=== PATIENT | female | born 1990 | race American Indian/Alaskan Native ===

== ENCOUNTER 2016-12-05 12:29 | Emergency (ER) | payer OTHER ==
[2016-12-05 12:35] VITALS: BP 143/88
--- NOTE | 2016-12-06 20:43 | Emergency Department Report ---
Entered by ART BARUN, acting as scribe for MARC SHARMA PA. ED ENT HPI - General Chief complaint: Dental/Oral Stated complaint: TOOTHACHE Source: patient Mode of arrival: Ambulatory Limitations: No Limitations - History of Present Illness Initial comments: 26 year old female with a PMHx of obesity and anemia presents to the ED c/o a toothache that began this morning. Rates pain a 10/10 in severity. Pt states the pain is coming from a tooth on the right back side of lower mouth. Notes pain radiates to her right ear. Denies headache, fever, chills, and sore throat. MD complaint: tooth pain (lower tooth on back right side) -: This morning Location: other (right lower back tooth) Severity: moderate Severity scale (0 -10): 10 Quality: aching, constant Consistency: constant Improves with: none Worsens with: none Context- Dental: poor dental care Associated Symptoms: toothache. denies: fever, cough, gum swelling, sore throat , tinnitus, hearing loss, discharge from ear, rhinorrhea, other (chills) - Related Data Previous Rx's Medication Instructions Recorded Last Taken Type Nitrofurantoin [place]/M-Cryst 100 mg PO Q12HR #14 capsule 10/21/15 Unknown Rx [Macrobid CAP] Ketorolac [Toradol] 10 mg PO Q6H PRN #20 tablet 07/23/16 Unknown Rx Nitrofurantoin [place]/M-Cryst 100 mg PO Q12HR #14 capsule 07/23/16 Unknown Rx [Macrobid CAP] Ondansetron [Zofran Odt] 4 mg PO QID PRN #20 tab.rapdis 07/23/16 Unknown Rx Ibuprofen [Motrin 800 MG tab] 800 mg PO Q8HR PRN #15 tablet 12/05/16 Unknown Rx Penicillin Vk [Veetids TAB] 250 mg PO Q8H #60 tablet 12/05/16 Unknown Rx Allergies Allergy/AdvReac Type Severity Reaction Status Date / Time acetaminophen [From Vicodin] Allergy Rash Verified 10/21/15 13:37 hydrocodone bitartrate Allergy Rash Verified 10/21/15 13:37 [From Vicodin] ED Dental HPI - General Chief complaint: Dental/Oral Stated complaint: TOOTHACHE Source: patient Mode of arrival: Ambulatory Limitations: No Limitations - History of Present Illness MD complaint: tooth pain (lower tooth on back right side) -: This morning Severity: moderate Quality: aching, constant Consistency: constant Improves with: none Worsens with: none Dental Associated Symptons: Yes: Earache. No: Headache, Sore Throat, Gum Swelling, Fever - Related Data Previous Rx's Medication Instructions Recorded Last Taken Type Nitrofurantoin [place]/M-Cryst 100 mg PO Q12HR #14 capsule 10/21/15 Unknown Rx [Macrobid CAP] Ketorolac [Toradol] 10 mg PO Q6H PRN #20 tablet 07/23/16 Unknown Rx Nitrofurantoin [place]/M-Cryst 100 mg PO Q12HR #14 capsule 07/23/16 Unknown Rx [Macrobid CAP] Ondansetron [Zofran Odt] 4 mg PO QID PRN #20 tab.rapdis 07/23/16 Unknown Rx Ibuprofen [Motrin 800 MG tab] 800 mg PO Q8HR PRN #15 tablet 12/05/16 Unknown Rx Penicillin Vk [Veetids TAB] 250 mg PO Q8H #60 tablet 12/05/16 Unknown Rx Allergies Allergy/AdvReac Type Severity Reaction Status Date / Time acetaminophen [From Vicodin] Allergy Rash Verified 10/21/15 13:37 hydrocodone bitartrate Allergy Rash Verified 10/21/15 13:37 [From Vicodin] ED Review of Systems Comment: All other systems reviewed and negative Constitutional: no symptoms reported. denies: chills, fever ENT: ear pain (right), dental pain (tooth on right back side of lower mouth). denies: throat pain, other (gum swelling) Respiratory: no symptoms reported Cardiovascular: denies: chest pain, palpitations, edema, syncope Gastrointestinal: denies: nausea, vomiting Musculoskeletal: denies: back pain, arthralgia Skin: denies: rash Neurological: denies: headache ED Past Medical Hx - Past Medical History Previous Medical History?: Yes Hx Hypertension: No Hx Congestive Heart Failure: No Hx Diabetes: No Hx Deep Vein Thrombosis: No Hx Renal Disease: No Hx Sickle Cell Disease: No Hx Seizures: No Hx Asthma: No Hx COPD: No Hx HIV: No Additional medical history: OBESITY, anemic - Surgical History Past Surgical History?: Yes Additional Surgical History: breast reduction, TONSILLECTOMY - Family History Family history: hypertension - Social History Smoking Status: Never Smoker Substance Use Type: None - Medications Home Medications: Home Medications Medication Instructions Recorded Confirmed Last Taken Type Nitrofurantoin [place]/M-Cryst 100 mg PO Q12HR #14 capsule 10/21/15 Unknown Rx [Macrobid CAP] Ketorolac [Toradol] 10 mg PO Q6H PRN #20 tablet 07/23/16 Unknown Rx Nitrofurantoin [place]/M-Cryst 100 mg PO Q12HR #14 capsule 07/23/16 Unknown Rx [Macrobid CAP] Ondansetron [Zofran Odt] 4 mg PO QID PRN #20 tab.rapdis 07/23/16 Unknown Rx Ibuprofen [Motrin 800 MG tab] 800 mg PO Q8HR PRN #15 tablet 12/05/16 Unknown Rx Penicillin Vk [Veetids TAB] 250 mg PO Q8H #60 tablet 12/05/16 Unknown Rx ED Physical Exam - General Limitations: No Limitations General appearance: alert, in no apparent distress - Head Head exam: Present: atraumatic, normocephalic - Eye Eye exam: Present: normal appearance, EOMI Pupils: Present: normal accommodation - ENT ENT exam: Present: normal exam, mucous membranes moist. Absent: other ( induration and cellulitis) - Expanded ENT Exam Expanded Mouth exam: Present: normal external inspection. Absent: drooling Teeth exam: Present: dental caries (right and left sides of lower mouth). Absent: fractured tooth #, dental tenderness #, gingival enlargement Throat exam: Positive: normal inspection. Negative: tonsillar erythema, tonsillomegaly, tonsillar exudate, R peritonsillar mass, L peritonsillar mass - Neck Neck exam: Present: normal inspection (supple), full ROM. Absent: tenderness, meningismus, lymphadenopathy - Respiratory Respiratory exam: Present: normal lung sounds bilaterally. Absent: respiratory distress, chest wall tenderness - Cardiovascular Cardiovascular Exam: Present: regular rate (S1/S2), normal rhythm. Absent: systolic murmur, diastolic murmur - GI/Abdominal GI/Abdominal exam: Present: soft. Absent: distended - Extremities Exam Extremities exam: Present: normal inspection, full ROM - Back Exam Back exam: Present: normal inspection, full ROM - Neurological Exam Neurological exam: Present: alert, oriented X3 - Psychiatric Psychiatric exam: Present: normal affect, normal mood - Skin Skin exam: Present: warm, dry, intact. Absent: rash, cyanosis, erythema, ecchymosis, other (right facial swelling, induration, and cellulitis) ED Course Vital Signs 12/05/16 12:33 Temperature 98.5 F Pulse Rate 80 Respiratory 18 Rate Blood Pressure 143/88 O2 Sat by Pulse 100 Oximetry - Reevaluation(s) Reevaluation #1: 12/06/16 20:41 had uneventful ED stay ED Medical Decision Making - Medical Decision Making ED course: Here complaining of toothache and her diagnosis toothache and dental caries. Patient was placed on penicillin and Motrin and to follow-up with [facility] dental [facility]. I gave her a vaginosis and a phone number and told her to call to schedule an appointment. She was understanding of diagnosis and treatment plan and discharged home in stable condition. ED Disposition Clinical Impression: Tooth ache, Dental caries Disposition: DISCHARGED TO HOME OR SELFCARE Is pt being admited?: No Does the pt Need Aspirin: No Condition: Stable Instructions: Dental Caries (ED), Toothache (ED) Prescriptions: Ibuprofen [Motrin 800 MG tab] 800 mg PO Q8HR PRN #15 tablet PRN Reason: Pain Penicillin Vk [Veetids TAB] 250 mg PO Q8H #60 tablet Referrals: [facility] [Outside] - 2-3 Days Forms: Work/School Release Form(ED) This documentation as recorded by the APARNA corona JASMINE,accurately reflects the service I personally performed and the decisions made by ,MARC SHARMA PA.
== END 2016-12-05 14:11 | disposition home or self-care (01) ==
LOC: ED 12:29
DX: K02.9 Dental caries, unspecified (principal); K08.89 Other specified disorders of teeth and supporting structures; E66.9 Obesity, unspecified; Z88.8 Allergy status to other drugs, medicaments and biological substances
CPT/HCPCS: 99282

== ENCOUNTER 2016-12-19 15:12 | Emergency (ER) | payer OTHER ==
--- NOTE | 2016-12-19 19:36 | Emergency Department Report ---
HPI - General Chief Complaint: Sore Throat Time Seen by Provider: 12/19/16 19:16 - HPI HPI: Patient here reports that she's been having nasal congestion for over a week and flulike symptoms with sinus pressure started 3 days ago. She says she tried Mucinex and Tylenol and Robitussin without any relief. Denies any nausea vomiting. Denies any fever or chills.Reports sore throat 10/10. Pain is worse with swallowing and feels sore. Denies any difficulty swallowing or drooling. Reports some coughing but denies any shortness of breath or chest pain. Has any wheezing or stridor. ED Past Medical Hx - Past Medical History Previous Medical History?: Yes Hx Hypertension: No Hx Congestive Heart Failure: No Hx Diabetes: No Hx Deep Vein Thrombosis: No Hx Renal Disease: No Hx Sickle Cell Disease: No Hx Seizures: No Hx Asthma: No Hx COPD: No Hx HIV: No Additional medical history: OBESITY, anemic - Surgical History Past Surgical History?: Yes Additional Surgical History: breast reduction, TONSILLECTOMY - Family History Family history: hypertension - Social History Smoking Status: Never Smoker Substance Use Type: Alcohol, Non Opiate Pain, Other - Medications Home Medications: Home Medications Medication Instructions Recorded Confirmed Last Taken Type Nitrofurantoin [place]/M-Cryst 100 mg PO Q12HR #14 capsule 10/21/15 Unknown Rx [Macrobid CAP] Ketorolac [Toradol] 10 mg PO Q6H PRN #20 tablet 07/23/16 Unknown Rx Nitrofurantoin [place]/M-Cryst 100 mg PO Q12HR #14 capsule 07/23/16 Unknown Rx [Macrobid CAP] Ondansetron [Zofran Odt] 4 mg PO QID PRN #20 tab.rapdis 07/23/16 Unknown Rx Penicillin Vk [Veetids TAB] 250 mg PO Q8H #60 tablet 12/05/16 Unknown Rx Amoxicillin/K Clav Tab [Augmentin 1 tab PO Q12HR #14 tab 12/19/16 Unknown Rx 875 mg] Cetirizine HCl [ZyrTEC] 10 mg PO QDAY #14 capsule 12/19/16 Unknown Rx Fluticasone [Flonase] 1 spray NS QDAY #1 bottle 12/19/16 Unknown Rx Ibuprofen [Motrin 800 MG tab] 800 mg PO Q8HR PRN #15 tablet 12/19/16 Unknown Rx predniSONE [Deltasone] 20 mg PO QDAY #3 tab 12/19/16 Unknown Rx ED Review of Systems ROS: Stated complaint: SORE THROAT Other details as noted in HPI Comment: All other systems reviewed and negative Constitutional: denies: chills, fever ENT: throat pain, congestion. denies: ear pain Respiratory: cough. denies: orthopnea, shortness of breath, SOB with exertion, SOB at rest, stridor, wheezing Cardiovascular: denies: chest pain, palpitations, edema, syncope Gastrointestinal: denies: abdominal pain, nausea, vomiting, diarrhea Musculoskeletal: denies: back pain, arthralgia Skin: denies: rash Neurological: denies: headache, numbness, paresthesias, abnormal gait, vertigo Physical Exam - Physical Exam Vital Signs: Vital Signs 12/19/16 15:47 Temperature 98.4 F Pulse Rate 80 Respiratory 16 Rate Blood Pressure 141/98 O2 Sat by Pulse 98 Oximetry General: This is a 26-year-old female well-nourished well-developed in no acute distress. Physical Exam: Head: Normocephalic atraumatic Mouth: Moist, no pharyngeal exudate or erythema. Uvula is midline and oral airway is patent. No gingival enlargement or dental tenderness. No facial swelling. No peritonsillar abscesses. Neck: Supple, no C-spine tenderness, no tracheal deviation. Nontender to palpate. no adenopathy Ears: Bilateral TMs congested without erythema .bilateral EAC without any redness swelling or drainage Eyes: Bilateral pupils equal and reactive to light, bilateral EOM intact. Bilateral sclera and conjunctiva without injection. Normal accommodation Nose: Mucosa moist, positive congestion with erythema. Positive clear drainage. maxillary tender to palpate. Lungs: clear to auscultate bilaterally no rhonchi wheezes or rales. Normal work of breathing extremity; No CCE. +2 pulses. No neurovascular compromise Cardiovascular: S1-S2, regular rate rhythm. No murmurs. Skin: clean Dry and intact no rash no lesions Psych: Normal mood and behavior ED Course Vital Signs 12/19/16 15:47 Temperature 98.4 F Pulse Rate 80 Respiratory 16 Rate Blood Pressure 141/98 O2 Sat by Pulse 98 Oximetry - Reevaluation(s) Reevaluation #1: 12/19/16 19:49 Patient given Motrin 800 mg in emergency room face or throat. ED Medical Decision Making - Medical Decision Making ED course: She had acute sinusitis and pharyngitis. She has been having symptoms for a week and has tried [id number] medication without any relief. She said her symptoms are getting worse. She was given Motrin 800 mg in emergency room for sore throat. Patient was understanding of discharge diagnosis and treatment plan and follow-up visit with primary care in 4 days and if she does not have a primary care follow-up with outside Medical Center. Patient discharged home with prescription for Augmentin, Zyrtec, Flonase, prednisone and Motrin. Critical care attestation.: If time is entered above; I have spent that time in minutes in the direct care of this critically ill patient, excluding procedure time. ED Disposition Clinical Impression: Acute sinusitis Qualifiers: Sinusitis location: unspecified location Recurrence: not specified as recurrent Qualified Code(s): J01.90 - Acute sinusitis, unspecified Acute pharyngitis Qualifiers: Pharyngitis/tonsillitis etiology: unspecified etiology Qualified Code(s): J02.9 - Acute pharyngitis, unspecified Disposition: DISCHARGED TO HOME OR SELFCARE Is pt being admited?: No Does the pt Need Aspirin: No Condition: Stable Instructions: Pharyngitis (ED), Sinusitis (ED) Additional Instructions: Please increase her fluid intake Take antibiotic as prescribed Please follow-up with your primary care doctor if he does not have a primary care physician then he can follow-[facility] with [facility]. Take Motrin or Tylenol per dosing chart guideline to keep fever down and to use pain. Prescriptions: Amoxicillin/K Clav Tab [Augmentin 875 mg] 1 tab PO Q12HR #14 tab Cetirizine HCl [ZyrTEC] 10 mg PO QDAY #14 capsule Fluticasone [Flonase] 1 spray NS QDAY #1 bottle Ibuprofen [Motrin 800 MG tab] 800 mg PO Q8HR PRN #15 tablet PRN Reason: Pain predniSONE [Deltasone] 20 mg PO QDAY #3 tab Referrals: PRIMARY CARE,MD [Primary Care Provider] - 3-5 Days Forms: Accompanied Note, Work/School Release Form(ED)
[2016-12-19] MEDS ORDERED: MOTRIN PO ONE (19:46)
[2016-12-19 20:04] VITALS: BP 142/94
== END 2016-12-19 20:05 | disposition home or self-care (01) ==
LOC: ED 15:12
DX: J01.90 Acute sinusitis, unspecified (principal)
CPT/HCPCS: 99282

== ENCOUNTER 2017-07-08 17:59 | Emergency (ER) | payer SELFPAY ==
[2017-07-08] MEDS ORDERED: MOTRIN PO ONE (20:40)
--- NOTE | 2017-07-08 21:49 | Emergency Department Report ---
Upper Extremity - HPI Chief Complaint: Extremity Injury, Upper Stated Complaint: FINGER INJURY Time Seen by Provider: 07/08/17 20:40 Upper Extremity: Left Middle Finger (left distal middle finger contusion) Occurred When: Today Mechanism: Crush Severity: mild Symptoms: Yes Swelling, Yes Bruising/Ecchymosis, No Pain with Movement, No Deformity, No Limited Range of Movement, No Numbness, No Weakness, No Laceration or Abrasion Other History: 27-year-old female past medical history none presents with complaint of left distal middle finger pain. Patient states she accidentally closed car window on tip of her left distal middle finger. Visible bruising to distal tuft. No lacerations sustained nail bed is intact. Denies injury to any other body part. ED Review of Systems ROS: Stated complaint: FINGER INJURY Other details as noted in HPI Constitutional: denies: chills, fever Eyes: denies: eye pain, eye discharge, vision change ENT: denies: ear pain, throat pain Respiratory: denies: cough, shortness of breath, wheezing Cardiovascular: denies: chest pain, palpitations Endocrine: no symptoms reported Gastrointestinal: denies: abdominal pain, nausea, diarrhea Genitourinary: denies: urgency, dysuria, discharge Musculoskeletal: denies: back pain, joint swelling, arthralgia Skin: denies: rash, lesions Neurological: denies: headache, weakness, paresthesias Psychiatric: denies: anxiety, depression Hematological/Lymphatic: denies: easy bleeding, easy bruising ED Past Medical Hx - Past Medical History Hx Hypertension: No Hx Congestive Heart Failure: No Hx Diabetes: No Hx Deep Vein Thrombosis: No Hx Renal Disease: No Hx Sickle Cell Disease: No Hx Seizures: No Hx Asthma: No Hx COPD: No Hx HIV: No Additional medical history: OBESITY, anemic - Surgical History Additional Surgical History: breast reduction, TONSILLECTOMY - Social History Smoking Status: Never Smoker Substance Use Type: None - Medications Home Medications: Home Medications Medication Instructions Recorded Confirmed Last Taken Type Nitrofurantoin [place]/M-Cryst 100 mg PO Q12HR #14 capsule 10/21/15 Unknown Rx [Macrobid CAP] Ketorolac [Toradol] 10 mg PO Q6H PRN #20 tablet 07/23/16 Unknown Rx Nitrofurantoin [place]/M-Cryst 100 mg PO Q12HR #14 capsule 07/23/16 Unknown Rx [Macrobid CAP] Ondansetron [Zofran Odt] 4 mg PO QID PRN #20 tab.rapdis 07/23/16 Unknown Rx Penicillin Vk [Veetids TAB] 250 mg PO Q8H #60 tablet 12/05/16 Unknown Rx Amoxicillin/K Clav Tab [Augmentin 1 tab PO Q12HR #14 tab 12/19/16 Unknown Rx 875 mg] Cetirizine HCl [ZyrTEC] 10 mg PO QDAY #14 capsule 12/19/16 Unknown Rx Fluticasone [Flonase] 1 spray NS QDAY #1 bottle 12/19/16 Unknown Rx Ibuprofen [Motrin 800 MG tab] 800 mg PO Q8HR PRN #15 tablet 12/19/16 Unknown Rx predniSONE [Deltasone] 20 mg PO QDAY #3 tab 12/19/16 Unknown Rx Naproxen 500 mg PO BID PRN #30 tablet 07/08/17 Unknown Rx Upper Extremity Exam - Exam General: Vital signs noted. No distress. Alert and acting appropriately. Head and Torso: No HEENT Abnormality, No Neck Tenderness, No Chest/Lungs Abnormality, No Abdominal Tenderness, No Back Tenderness Shoulder Exam: Yes Normal Range of Motion in Shoulder, No Shoulder Tenderness, No Clavicle Tenderness, No Shoulder Deformity, No AC Joint Tenderness Arm Exam: No Arm/Humerus Tenderness, No Arm Deformity Elbow: No Elbow Tenderness, No Normal Range of Motion in Elbow, No Elbow Deformity Forearm: No Forearm Tenderness, No Forearm Deformity, No Pain with Pronation, No Pain with Supination Wrist: Yes Normal ROM in Wrist, No Wrist Tenderness, No Wrist Deformity, No Snuffbox Tenderness, No Pain with Axial Thumb Compression Hand: Yes Digit Tenderness (tenderness to distal aspect of the left middle finger at finger pad. Some bruising here. Nailbed is intact. Capillary refill less than 1 second.), Yes Normal ROM in Digit(s) (range of motion DIPs PIPs and MCPs clinically intact on exam), No Hand Tenderness, No Hand Deformity , No Digit(s) Deformity, No Tendon Dysfunction CMS Exam: Yes Normal Distal Pulses (distal sensation and capillary refill intact , distal radial and ulnar pulses intact), Yes Normal Capillary Refill, Yes Normal Distal Sensation, No Broken Skin Hand L/R Front: 1 - Some bruising here with minimal swelling. ED Course Vital Signs 07/08/17 07/08/17 19:04 21:15 Temperature 98.9 F Pulse Rate 64 Respiratory 18 18 Rate Blood Pressure 150/89 O2 Sat by Pulse 100 Oximetry ED Medical Decision Making - Medical Decision Making A/P: Distal left middle finger contusion 1-x-ray shows no fracture 2-naproxen when necessary 3-RICE therapy, distal finger splint Critical care attestation.: If time is entered above; I have spent that time in minutes in the direct care of this critically ill patient, excluding procedure time. ED Disposition Clinical Impression: Fingertip contusion Qualifiers: Encounter type: initial encounter Qualified Code(s): S60.00XA - Contusion of unspecified finger without damage to nail, initial encounter Disposition: DC-01 TO HOME OR SELFCARE Is pt being admited?: No Does the pt Need Aspirin: No Condition: Stable Instructions: Contusion in Adults (ED), Finger Sprain (ED) Prescriptions: Naproxen 500 mg PO BID PRN #30 tablet PRN Reason: Congestion Time of Disposition: 21:47
--- NOTE | 2017-07-08 23:29 | XRay Report ---
FINAL REPORT EXAM: XR FINGER(S) 2+V LT HISTORY: injury to the left 3rd finger TECHNIQUE: AP, lateral, and oblique views of the left 3rd finger PRIORS: None. FINDINGS: There is no evidence for acute fracture or dislocation. No soft tissue swelling or radiopaque foreign bodies are seen. Bony mineralization is normal and joint spaces are maintained. IMPRESSION: No acute bony or soft tissue abnormality noted.
[2017-07-08 23:46] VITALS: BP 143/84
== END 2017-07-08 22:03 | disposition home or self-care (01) ==
LOC: ED 17:59
DX: S60.032A Contusion of left middle finger without damage to nail, initial encounter (principal); W23.0XXA Caught, crushed, jammed, or pinched between moving objects, initial encounter; Y93.89 Activity, other specified; Y99.8 Other external cause status; Y92.89 Other specified places as the place of occurrence of the external cause

== ENCOUNTER 2017-09-14 07:55 | Emergency (ER) | payer OTHER ==
[2017-09-14 08:50] LABS: Hematocrit 42.2 % (30.3-42.9); Hemoglobin 13.8 gm/dl (10.1-14.3); Mean Corpuscular HGB Conc 33 % (30-34); Mean Corpuscular Hemoglobin 28 pg (28-32); Mean Corpuscular Volume 87 fl (79-97); Platelet Count 297 K/mm3 (140-440); Red Blood Count 4.85 M/mm3 (3.65-5.03); Red Cell Distribution Width 14.7 % (13.2-15.2)
[2017-09-14 09:17] LABS: Bilirubin,Urine NEG (Negative); Blood,Urine SM (Negative); Color,Urine Yellow (Yellow); Mucus,Urine FEW /HPF; Nitrite,Urine NEG (Negative); Protein,Urine <15 mg/dL mg/dL (Negative); Urobilinogen,Urine < 2.0 mg/dL (<2.0)
[2017-09-14 09:18] LABS: Alanine Aminotransferase 15 units/L (7-56); Albumin 4.3 g/dL (3.9-5); BUN/Creatinine Ratio 12; Blood Urea Nitrogen 7 mg/dL (7-17); Calcium 8.5 mg/dL (8.4-10.2); Hemolysis Index 5
[2017-09-14 10:41] LABS: Basophils % (Manual) 0 % (0.0-1.8); Large Platelets Rare; Platelet Estimate Consistent w Auto; RBC Morphology Normal; Total Cells Counted 100
[2017-09-14 12:56] VITALS: BP 148/88
--- NOTE | 2017-09-14 13:06 | Emergency Department Report ---
ED Abdominal Pain HPI - General Chief Complaint: Abdominal Pain Stated Complaint: ABDOMINAL PAIN Source: patient Mode of arrival: Ambulatory Limitations: No Limitations - History of Present Illness MD Complaint: abdominal pain -: Gradual Location: LUQ Radiation: none Migration to: no migration Severity: moderate Quality: cramping, dull Consistency: constant Improves With: nothing Worsens With: eating Associated Symptoms: denies: nausea, vomiting, diarrhea - Related Data Previous Rx's Medication Instructions Recorded Last Taken Type Nitrofurantoin [place]/M-Cryst 100 mg PO Q12HR #14 capsule 10/21/15 Unknown Rx [Macrobid CAP] Ketorolac [Toradol] 10 mg PO Q6H PRN #20 tablet 07/23/16 Unknown Rx Nitrofurantoin [place]/M-Cryst 100 mg PO Q12HR #14 capsule 07/23/16 Unknown Rx [Macrobid CAP] Ondansetron [Zofran Odt] 4 mg PO QID PRN #20 tab.rapdis 07/23/16 Unknown Rx Penicillin Vk [Veetids TAB] 250 mg PO Q8H #60 tablet 12/05/16 Unknown Rx Amoxicillin/K Clav Tab [Augmentin 1 tab PO Q12HR #14 tab 12/19/16 Unknown Rx 875 mg] Cetirizine HCl [ZyrTEC] 10 mg PO QDAY #14 capsule 12/19/16 Unknown Rx Fluticasone [Flonase] 1 spray NS QDAY #1 bottle 12/19/16 Unknown Rx Ibuprofen [Motrin 800 MG tab] 800 mg PO Q8HR PRN #15 tablet 12/19/16 Unknown Rx predniSONE [Deltasone] 20 mg PO QDAY #3 tab 12/19/16 Unknown Rx Naproxen 500 mg PO BID PRN #30 tablet 07/08/17 Unknown Rx Famotidine [Pepcid] 20 mg PO BID 14 Days #28 tablet 09/14/17 Unknown Rx Allergies Allergy/AdvReac Type Severity Reaction Status Date / Time acetaminophen [From Vicodin] Allergy Rash Verified 10/21/15 13:37 hydrocodone bitartrate Allergy Rash Verified 10/21/15 13:37 [From Vicodin] ED Review of Systems ROS: Stated complaint: ABDOMINAL PAIN Other details as noted in HPI Comment: All other systems reviewed and negative Constitutional: no symptoms reported. denies: fever, malaise Cardiovascular: denies: chest pain ED Past Medical Hx - Past Medical History Previous Medical History?: Yes Hx Hypertension: No Hx Congestive Heart Failure: No Hx Diabetes: No Hx Deep Vein Thrombosis: No Hx Renal Disease: No Hx Sickle Cell Disease: No Hx Seizures: No Hx Asthma: No Hx COPD: No Hx HIV: No Additional medical history: OBESITY, anemic - Surgical History Past Surgical History?: Yes Additional Surgical History: breast reduction, TONSILLECTOMY - Social History Smoking Status: Never Smoker Substance Use Type: None - Medications Home Medications: Home Medications Medication Instructions Recorded Confirmed Last Taken Type Nitrofurantoin [place]/M-Cryst 100 mg PO Q12HR #14 capsule 10/21/15 Unknown Rx [Macrobid CAP] Ketorolac [Toradol] 10 mg PO Q6H PRN #20 tablet 07/23/16 Unknown Rx Nitrofurantoin [place]/M-Cryst 100 mg PO Q12HR #14 capsule 07/23/16 Unknown Rx [Macrobid CAP] Ondansetron [Zofran Odt] 4 mg PO QID PRN #20 tab.rapdis 07/23/16 Unknown Rx Penicillin Vk [Veetids TAB] 250 mg PO Q8H #60 tablet 12/05/16 Unknown Rx Amoxicillin/K Clav Tab [Augmentin 1 tab PO Q12HR #14 tab 12/19/16 Unknown Rx 875 mg] Cetirizine HCl [ZyrTEC] 10 mg PO QDAY #14 capsule 12/19/16 Unknown Rx Fluticasone [Flonase] 1 spray NS QDAY #1 bottle 12/19/16 Unknown Rx Ibuprofen [Motrin 800 MG tab] 800 mg PO Q8HR PRN #15 tablet 12/19/16 Unknown Rx predniSONE [Deltasone] 20 mg PO QDAY #3 tab 12/19/16 Unknown Rx Naproxen 500 mg PO BID PRN #30 tablet 07/08/17 Unknown Rx Famotidine [Pepcid] 20 mg PO BID 14 Days #28 tablet 09/14/17 Unknown Rx ED Physical Exam - General Limitations: No Limitations General appearance: alert, in no apparent distress - Head Head exam: Present: atraumatic, normocephalic - Eye Eye exam: Present: normal appearance - ENT ENT exam: Present: normal orophraynx, mucous membranes moist - Neck Neck exam: Present: normal inspection - Respiratory Respiratory exam: Present: normal lung sounds bilaterally. Absent: respiratory distress, wheezes, rales, rhonchi - Cardiovascular Cardiovascular Exam: Present: regular rate, normal rhythm. Absent: systolic murmur, diastolic murmur, rubs, gallop - GI/Abdominal GI/Abdominal exam: Present: soft, normal bowel sounds. Absent: distended, tenderness, guarding, rebound - Extremities Exam Extremities exam: Present: normal inspection - Back Exam Back exam: Present: normal inspection - Neurological Exam Neurological exam: Present: alert, oriented X3 - Psychiatric Psychiatric exam: Present: normal affect, normal mood - Skin Skin exam: Present: warm, dry, intact, normal color. Absent: rash ED Course Vital Signs 09/14/17 09/14/17 09/14/17 08:18 12:52 12:56 Temperature 98.3 F 98.5 F Pulse Rate 50 L 46 L Respiratory 16 Rate Blood Pressure 165/86 148/88 O2 Sat by Pulse 99 98 Oximetry ED Medical Decision Making - Lab Data Result diagrams: 09/14/17 08:30 09/14/17 08:30 Vital Signs - 24 hr 09/14/17 09/14/17 09/14/17 08:18 12:52 12:56 Temperature 98.3 F 98.5 F Pulse Rate 50 L 46 L Respiratory 16 Rate Blood Pressure 165/86 148/88 O2 Sat by Pulse 99 98 Oximetry Laboratory Results - last 24 hr 09/14/17 09/14/17 09/14/17 08:30 08:30 08:30 WBC 4.6 RBC 4.85 Hgb 13.8 Hct 42.2 MCV 87 MCH 28 MCHC 33 RDW 14.7 Plt Count 297 Add Manual Diff Complete Total Counted 100 Seg Neutrophils % Distribution Sales Manager Seg Neuts % (Manual) 37.0 L Band Neutrophils % 0 Lymphocytes % (Manual) 51.0 H Reactive Lymphs % (Man) 0 Monocytes % (Manual) 9.0 H Eosinophils % (Manual) 3.0 Basophils % (Manual) 0 Metamyelocytes % 0 Myelocytes % 0 Promyelocytes % 0 Blast Cells % 0 Nucleated RBC % Not Reportable Seg Neutrophils # Man 1.7 L Band Neutrophils # 0.0 Lymphocytes # (Manual) 2.3 Abs React Lymphs (Man) 0.0 Monocytes # (Manual) 0.4 Eosinophils # (Manual) 0.1 Basophils # (Manual) 0.0 Metamyelocytes # 0.0 Myelocytes # 0.0 Promyelocytes # 0.0 Blast Cells # 0.0 WBC Morphology Not Reportable Hypersegmented Neuts Not Reportable Hyposegmented Neuts Not Reportable Hypogranular Neuts Not Reportable Smudge Cells Not Reportable Toxic Granulation Not Reportable Toxic Vacuolation Not Reportable Dohle Bodies Not Reportable Pelger-Huet Anomaly Not Reportable [place] Rods Not Reportable Platelet Estimate Consistent w auto Clumped Platelets Not Reportable Plt Clumps, EDTA Not Reportable Large Platelets Rare Giant Platelets Not Reportable Platelet Satelliting Not Reportable Plt Morphology Comment Not Reportable RBC Morphology Normal Dimorphic RBCs Not Reportable Polychromasia Not Reportable Hypochromasia Not Reportable Poikilocytosis Not Reportable Anisocytosis Not Reportable Microcytosis Not Reportable Macrocytosis Not Reportable Spherocytes Not Reportable Pappenheimer Bodies Not Reportable Sickle Cells Not Reportable Target Cells Not Reportable Tear Drop Cells Not Reportable Ovalocytes Not Reportable Helmet Cells Not Reportable [place] Bodies Not Reportable [place] Rings Not Reportable [place] Cells Not Reportable Bite Cells Not Reportable Crenated Cell Not Reportable Elliptocytes Not Reportable Acanthocytes (Spur) Not Reportable Rouleaux Not Reportable Hemoglobin C Crystals Not Reportable Schistocytes Not Reportable Malaria parasites Not Reportable Steven Bodies Not Reportable Hem Pathologist Commnt No Sodium 141 Potassium 3.7 Chloride 101.2 Carbon Dioxide 29 Anion Gap 15 BUN 7 Creatinine 0.6 L Estimated GFR > 60 BUN/Creatinine Ratio 12 Glucose 103 H Calcium 8.5 Total Bilirubin 0.50 AST 17 ALT 15 Alkaline Phosphatase 53 Total Protein 7.7 Albumin 4.3 Albumin/Globulin Ratio 1.3 HCG, Qual Negative Urine Color Urine Turbidity Urine pH Ur Specific [place] Urine Protein Urine Glucose (UA) Urine Ketones Urine Blood Urine Nitrite Urine Bilirubin Urine Urobilinogen Ur Leukocyte Esterase Urine WBC (Auto) Urine RBC (Auto) U Epithel Cells (Auto) Urine Mucus 09/14/17 08:51 WBC RBC Hgb Hct MCV MCH MCHC RDW Plt Count Add Manual Diff Total Counted Seg Neutrophils % Seg Neuts % (Manual) Band Neutrophils % Lymphocytes % (Manual) Reactive Lymphs % (Man) Monocytes % (Manual) Eosinophils % (Manual) Basophils % (Manual) Metamyelocytes % Myelocytes % Promyelocytes % Blast Cells % Nucleated RBC % Seg Neutrophils # Man Band Neutrophils # Lymphocytes # (Manual) Abs React Lymphs (Man) Monocytes # (Manual) Eosinophils # (Manual) Basophils # (Manual) Metamyelocytes # Myelocytes # Promyelocytes # Blast Cells # WBC Morphology Hypersegmented Neuts Hyposegmented Neuts Hypogranular Neuts Smudge Cells Toxic Granulation Toxic Vacuolation Dohle Bodies Pelger-Huet Anomaly [place] Rods Platelet Estimate Clumped Platelets Plt Clumps, EDTA Large Platelets Giant Platelets Platelet Satelliting Plt Morphology Comment RBC Morphology Dimorphic RBCs Polychromasia Hypochromasia Poikilocytosis Anisocytosis Microcytosis Macrocytosis Spherocytes Pappenheimer Bodies Sickle Cells Target Cells Tear Drop Cells Ovalocytes Helmet Cells [place] Bodies [place] Rings [place] Cells Bite Cells Crenated Cell Elliptocytes Acanthocytes (Spur) Rouleaux Hemoglobin C Crystals Schistocytes Malaria parasites Steven Bodies Hem Pathologist Commnt Sodium Potassium Chloride Carbon Dioxide Anion Gap BUN Creatinine Estimated GFR BUN/Creatinine Ratio Glucose Calcium Total Bilirubin AST ALT Alkaline Phosphatase Total Protein Albumin Albumin/Globulin Ratio HCG, Qual Urine Color Yellow Urine Turbidity Clear Urine pH 7.0 Ur Specific [place] 1.013 Urine Protein <15 mg/dl Urine Glucose (UA) Neg Urine Ketones Neg Urine Blood Sm Urine Nitrite Neg Urine Bilirubin Neg Urine Urobilinogen < 2.0 Ur Leukocyte Esterase Neg Urine WBC (Auto) 2.0 Urine RBC (Auto) 2.0 U Epithel Cells (Auto) 5.0 Urine Mucus Few - EKG Data -: EKG Interpreted by Me - EKG Data 09/14/17 13:03 EKG obtained normal Obtained 0839 Normal sinus rhythm normal rate of 85 bpm normal axis normal intervals no ST-T signs of ischemia - Medical Decision Making Ms. Patel presents with left upper quadrant abdominal pain after eating. She denies vomiting. Denies diarrhea. Denies dysuria. She was told that her "intestines were backwards". 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 No indication of acute inflammatory or emergent abdominal process on this encounter today. I have given her gastritis education. I have prescribed famotidine twice a day for 2 weeks. Bradycardia noted on vital signs. However bradycardia is none noted on my exam or on EKG. Critical care attestation.: If time is entered above; I have spent that time in minutes in the direct care of this critically ill patient, excluding procedure time. ED Disposition Clinical Impression: Dyspepsia Disposition: TO HOME OR SELFCARE Is pt being admited?: No Does the pt Need Aspirin: No Condition: Stable Instructions: Abdominal Pain (ED) Prescriptions: Famotidine [Pepcid] 20 mg PO BID 14 Days #28 tablet Referrals: PRIMARY CARE, [Primary Care Provider] - 3-5 Days
== END 2017-09-14 13:22 | disposition home or self-care (01) ==
LOC: ED 07:55
DX: R10.13 Epigastric pain (principal)
CPT/HCPCS: 36415; 80053; 81001; 84703; 85007; 85025

== ENCOUNTER 2018-04-21 21:50 | Emergency (ER) | payer SELFPAY ==
[2018-04-21 23:19] LABS: Hematocrit 40.8 % (30.3-42.9); Hemoglobin 13.5 gm/dl (10.1-14.3); Mean Corpuscular HGB Conc 33 % (30-34); Mean Corpuscular Hemoglobin 29 pg (28-32); Mean Corpuscular Volume 89 fl (79-97); Platelet Count 277 K/mm3 (140-440); Red Blood Count 4.62 M/mm3 (3.65-5.03); Red Cell Distribution Width 14.4 % (13.2-15.2)
[2018-04-21 23:36] LABS: BUN/Creatinine Ratio 10; Blood Urea Nitrogen 8 mg/dL (7-17); Calcium 8.7 mg/dL (8.4-10.2); Hemolysis Index 9
--- NOTE | 2018-04-22 00:33 | Cat Scan Report ---
FINAL REPORT PROCEDURE: CT HEAD/BRAIN WO CON TECHNIQUE: Computerized tomography of the head was performed without contrast material. HISTORY: headache COMPARISON: No prior studies are available for comparison. FINDINGS: Skull and scalp: Normal. Paranasal sinuses: Normal. Ventricles and subarachnoid spaces: Normal. Cerebrum: No evidence of hemorrhage, acute infarction or mass . Cerebellum and brainstem: No evidence of hemorrhage, acute infarction or mass. Vasculature: Normal. Comments: None. IMPRESSION: Normal Examination
[2018-04-22] MEDS ORDERED: CATAPRES PO ONE (00:39)
--- NOTE | 2018-04-22 00:44 | Emergency Department Report ---
ED General Adult HPI - General Chief complaint: High BP Stated complaint: HIGH BP/DIZZINESS Time Seen by Provider: 04/22/18 00:30 Source: patient Mode of arrival: Ambulatory Limitations: No Limitations - History of Present Illness Initial comments: Patient is a 28-year-old black female with past medical history of several visits where blood pressure was elevated which was attributed to white coat syndrome. The patient took her blood pressure is weak and was elevated. She mentioned this to the family member who took it again today and was still quite high. Patient states her only symptoms are some very mild dizziness that she had earlier today. Patient denies any chest pain shortness of breath at this time. Patient is urinating fine and has no focal neurological deficits. Severity scale (0 -10): 6 - Related Data Previous Rx's Medication Instructions Recorded Last Taken Type Nitrofurantoin [place]/M-Cryst 100 mg PO Q12HR #14 capsule 10/21/15 Unknown Rx [Macrobid CAP] Ketorolac [Toradol] 10 mg PO Q6H PRN #20 tablet 07/23/16 Unknown Rx Nitrofurantoin [place]/M-Cryst 100 mg PO Q12HR #14 capsule 07/23/16 Unknown Rx [Macrobid CAP] Ondansetron [Zofran Odt] 4 mg PO QID PRN #20 tab.rapdis 07/23/16 Unknown Rx Penicillin Vk [Veetids TAB] 250 mg PO Q8H #60 tablet 12/05/16 Unknown Rx Amoxicillin/K Clav Tab [Augmentin 1 tab PO Q12HR #14 tab 12/19/16 Unknown Rx 875 mg] Cetirizine HCl [ZyrTEC] 10 mg PO QDAY #14 capsule 12/19/16 Unknown Rx Fluticasone [Flonase] 1 spray NS QDAY #1 bottle 12/19/16 Unknown Rx Ibuprofen [Motrin 800 MG tab] 800 mg PO Q8HR PRN #15 tablet 12/19/16 Unknown Rx predniSONE [Deltasone] 20 mg PO QDAY #3 tab 12/19/16 Unknown Rx Naproxen 500 mg PO BID PRN #30 tablet 07/08/17 Unknown Rx Famotidine [Pepcid] 20 mg PO BID 14 Days #28 tablet 09/14/17 Unknown Rx Amlodipine Besylate [Norvasc] 5 mg PO DAILY #30 tablet 04/22/18 Unknown Rx Allergies Allergy/AdvReac Type Severity Reaction Status Date / Time acetaminophen [From Vicodin] Allergy Rash Verified 10/21/15 13:37 hydrocodone bitartrate Allergy Rash Verified 10/21/15 13:37 [From Vicodin] ED Review of Systems ROS: Stated complaint: HIGH BP/DIZZINESS Other details as noted in HPI Comment: All other systems reviewed and negative ED Past Medical Hx - Past Medical History Hx Hypertension: No Hx Congestive Heart Failure: No Hx Diabetes: No Hx Deep Vein Thrombosis: No Hx Renal Disease: No Hx Sickle Cell Disease: No Hx Seizures: No Hx Asthma: No Hx COPD: No Hx HIV: No Additional medical history: OBESITY, anemic, Sinus Bradycardia - Surgical History Additional Surgical History: breast reduction, TONSILLECTOMY - Social History Smoking Status: Never Smoker Substance Use Type: None - Medications Home Medications: Home Medications Medication Instructions Recorded Confirmed Last Taken Type Nitrofurantoin [place]/M-Cryst 100 mg PO Q12HR #14 capsule 10/21/15 Unknown Rx [Macrobid CAP] Ketorolac [Toradol] 10 mg PO Q6H PRN #20 tablet 07/23/16 Unknown Rx Nitrofurantoin [place]/M-Cryst 100 mg PO Q12HR #14 capsule 07/23/16 Unknown Rx [Macrobid CAP] Ondansetron [Zofran Odt] 4 mg PO QID PRN #20 tab.rapdis 07/23/16 Unknown Rx Penicillin Vk [Veetids TAB] 250 mg PO Q8H #60 tablet 12/05/16 Unknown Rx Amoxicillin/K Clav Tab [Augmentin 1 tab PO Q12HR #14 tab 12/19/16 Unknown Rx 875 mg] Cetirizine HCl [ZyrTEC] 10 mg PO QDAY #14 capsule 12/19/16 Unknown Rx Fluticasone [Flonase] 1 spray NS QDAY #1 bottle 12/19/16 Unknown Rx Ibuprofen [Motrin 800 MG tab] 800 mg PO Q8HR PRN #15 tablet 12/19/16 Unknown Rx predniSONE [Deltasone] 20 mg PO QDAY #3 tab 12/19/16 Unknown Rx Naproxen 500 mg PO BID PRN #30 tablet 07/08/17 Unknown Rx Famotidine [Pepcid] 20 mg PO BID 14 Days #28 tablet 09/14/17 Unknown Rx Amlodipine Besylate [Norvasc] 5 mg PO DAILY #30 tablet 04/22/18 Unknown Rx ED Physical Exam - General Limitations: No Limitations General appearance: alert, in no apparent distress - Head Head exam: Present: atraumatic, normocephalic - Eye Eye exam: Present: normal appearance - ENT ENT exam: Present: mucous membranes moist - Neck Neck exam: Present: normal inspection - Respiratory Respiratory exam: Present: normal lung sounds bilaterally. Absent: respiratory distress, wheezes, rales, rhonchi - Cardiovascular Cardiovascular Exam: Present: regular rate, normal rhythm. Absent: systolic murmur, diastolic murmur, rubs, gallop - GI/Abdominal GI/Abdominal exam: Present: soft, normal bowel sounds. Absent: distended, tenderness, guarding, rebound - Extremities Exam Extremities exam: Present: normal inspection - Back Exam Back exam: Present: normal inspection - Neurological Exam Neurological exam: Present: alert, oriented X3 - Psychiatric Psychiatric exam: Present: normal affect, normal mood - Skin Skin exam: Present: warm, dry, intact, normal color. Absent: rash ED Course Vital Signs 04/21/18 04/22/18 22:51 00:33 Temperature 99 F Pulse Rate 75 71 Respiratory 20 16 Rate Blood Pressure 169/116 Blood Pressure 150/102 [Right] O2 Sat by Pulse 99 98 Oximetry ED Medical Decision Making - Lab Data Result diagrams: 04/21/18 23:05 04/21/18 23:05 Lab Results 04/21/18 04/21/18 04/21/18 Range/Units 23:05 23:05 23:05 WBC 5.9 (4.5-11.0) K/mm3 RBC 4.62 (3.65-5.03) M/mm3 Hgb 13.5 (10.1-14.3) gm/dl Hct 40.8 (30.3-42.9) % MCV 89 (79-97) fl MCH 29 (28-32) pg MCHC 33 (30-34) % RDW 14.4 (13.2-15.2) % Plt Count 277 (140-440) K/mm3 Seg Neutrophils % Stretcher Operator Sodium 142 (137-145) mmol/L Potassium 3.9 (3.6-5.0) mmol/L Chloride 102.5 (98-107) mmol/L Carbon Dioxide 29 (22-30) mmol/L Anion Gap 14 mmol/L BUN 8 (7-17) mg/dL Creatinine 0.8 (0.7-1.2) mg/dL Estimated GFR > 60 ml/min BUN/Creatinine Ratio 10 % Glucose 112 H (65-100) mg/dL Calcium 8.7 (8.4-10.2) mg/dL HCG, Qual Negative (Negative) - EKG Data -: EKG Interpreted by Me EKG shows normal: sinus rhythm, axis, intervals, QRS complexes, ST-T waves - EKG Data Interpretation: LVH - Medical Decision Making Given 0.1 Catapres be discharged home with a prescription for blood pressure medicines. Critical care attestation.: If time is entered above; I have spent that time in minutes in the direct care of this critically ill patient, excluding procedure time. ED Disposition Clinical Impression: Hypertensive urgency Disposition: DC-01 TO HOME OR SELFCARE Is pt being admited?: No Does the pt Need Aspirin: No Condition: Stable Instructions: Hypertension (ED) Prescriptions: Amlodipine Besylate [Norvasc] 5 mg PO DAILY #30 tablet Referrals: PRIMARY CARE, [Primary Care Provider] - 3-5 Days Time of Disposition: 00:45
[2018-04-22] MEDS ORDERED: CATAPRES ONE (00:45)
[2018-04-22 00:52] LABS: Basophils % (Manual) 0 % (0.0-1.8); Total Cells Counted 100
[2018-04-22 00:53] LABS: Platelet Estimate Consistent w Auto; RBC Morphology Normal
[2018-04-22] MEDS ORDERED: ULTRAM PO ONE (01:05)
[2018-04-22 01:52] VITALS: BP 138/105
== END 2018-04-22 01:53 | disposition home or self-care (01) ==
LOC: ED 21:50
DX: I16.0 Hypertensive urgency (principal); Z90.89 Acquired absence of other organs; Z88.6 Allergy status to analgesic agent; Z88.5 Allergy status to narcotic agent
CPT/HCPCS: 36415; 70450; 80048; 84703; 85007; 85025; 93005; 93010; 99284

== ENCOUNTER 2018-10-13 21:36 | Emergency (ER) | payer OTHER ==
[2018-10-13 22:13] VITALS: BP 153/88
[2018-10-13] MEDS ORDERED: IBUPROFEN PO ONE (22:41)
== END 2018-10-13 23:40 | disposition left against medical advice (07) ==
LOC: ED 21:36
DX: R51 Headache (principal); Z53.21 Procedure and treatment not carried out due to patient leaving prior to being seen by health care provider

== ENCOUNTER 2019-04-14 21:55 | Emergency (ER) | payer OTHER ==
[2019-04-14 23:04] LABS: Hematocrit 39.7 % (30.3-42.9); Hemoglobin 13.4 gm/dl (10.1-14.3); Mean Corpuscular HGB Conc 34 % (30-34); Mean Corpuscular Volume 89 fl (79-97); Platelet Count 296 K/mm3 (140-440); Red Blood Count 4.48 M/mm3 (3.65-5.03); Red Cell Distribution Width 14.6 % (13.2-15.2)
[2019-04-14 23:15] LABS: Bilirubin,Urine NEG (Negative); Blood,Urine SM (Negative); Color,Urine Yellow (Yellow); Mucus,Urine FEW /HPF; Protein,Urine <15 mg/dL mg/dL (Negative); Urobilinogen,Urine < 2.0 mg/dL (<2.0)
[2019-04-14 23:20] LABS: HCG Qualitative,Urine Negative (Negative)
[2019-04-14 23:29] LABS: Alanine Aminotransferase 18 units/L (7-56); Albumin 4.2 g/dL (3.9-5); BUN/Creatinine Ratio 14; Blood Urea Nitrogen 10 mg/dL (7-17); Hemolysis Index 15
[2019-04-14] MEDS ORDERED: CATAPRES PO ONE (23:52)
[2019-04-14] MEDS ORDERED: TORADOL IM ONE (23:52)
[2019-04-15 00:56] VITALS: BP 149/74
--- NOTE | 2019-04-15 01:28 | Cat Scan Report ---
CT HEAD WITHOUT CONTRAST INDICATION / CLINICAL INFORMATION: new onset headache, hypertensive. TECHNIQUE: All CT scans at this location are performed using CT dose reduction for ALARA by means of automated e xposure control. COMPARISON: Head CT 04/21/2018 FINDINGS: HEMORRHAGE: None. EXTRA-AXIAL SPACES: Normal in size and morphology for the patient's age. VENTRICULAR SYSTEM: Normal in size and morphology for the patient's age. CEREBRAL PARENCHYMA: No significant abnormality. No acute territorial infarct. MIDLINE SHIFT OR HERNIATION: None. CEREBELLUM / BRAINSTEM: No significant abnormality. ORBITS: Normal as visualized. SOFT TISSUES of HEAD: No significant abnormality. CALVARIUM: No significant abnormality. PARANASAL SINUSES / MASTOID AIR CELLS: Normal as visualized. ADDITIONAL FINDINGS: None. IMPRESSION: 1. No acute intracranial abnormality. Signer Name: Norman Odom MD Signed: 04/15/2019 1:23 AM Workstation Name: [id number]
--- NOTE | 2019-04-15 01:56 | Emergency Department Report ---
ED Headache HPI - General Chief Complaint: Headache Stated Complaint: HEADACHE/DIZZINESS Time Seen by Provider: 04/14/19 23:40 - History of Present Illness Initial Comments: Patient is a 29-year-old asthmatic female past medical history of hypertension who is presenting with a occipital headache. Patient states today throbbing sensation. There is been present for approximately a week. Patient states she has been away from her blood pressure medicines for the past 4 days but states to headache was there before. Patient has a remote history of headaches and had old prescription for Fioricet and judgment taking that without relief. Patient states there is been no nausea vomiting or focal neurological deficits fevers ch ills or neck stiffness. Allergies/Adverse Reactions: Allergies hydrocodone bitartrate [From Vicodin] Allergy (Verified 10/21/15 13:37) Rash Home Medications: Ambulatory Orders Nitrofurantoin [place]/M-Cryst [Macrobid CAP] 100 mg PO Q12HR #14 capsule 10/21/15 Ketorolac [Toradol] 10 mg PO Q6H PRN #20 tablet 07/23/16 Nitrofurantoin [place]/M-Cryst [Macrobid CAP] 100 mg PO Q12HR #14 capsule 07/23/16 Ondansetron [Zofran Odt] 4 mg PO QID PRN #20 tab.rapdis 07/23/16 Penicillin Vk [Veetids TAB] 250 mg PO Q8H #60 tablet 12/05/16 Amoxicillin/K Clav Tab [Augmentin 875 mg] 1 tab PO Q12HR #14 tab 12/19/16 Cetirizine HCl [ZyrTEC] 10 mg PO QDAY #14 capsule 12/19/16 Fluticasone [Flonase] 1 spray NS QDAY #1 bottle 12/19/16 Ibuprofen [Motrin 800 MG tab] 800 mg PO Q8HR PRN #15 tablet 12/19/16 predniSONE [Deltasone] 20 mg PO QDAY #3 tab 12/19/16 Naproxen 500 mg PO BID PRN #30 tablet 07/08/17 Famotidine [Pepcid] 20 mg PO BID 14 Days #28 tablet 09/14/17 Amlodipine Besylate [Norvasc] 5 mg PO DAILY #30 tablet 04/22/18 Ketorolac [Toradol] 10 mg PO Q6H PRN #12 tablet 04/15/19 ED Review of Systems ROS: Stated complaint: HEADACHE/DIZZINESS Other details as noted in HPI Comment: All other systems reviewed and negative ED Past Medical Hx - Past Medical History Previous Medical History?: Yes Hx Hypertension: Yes Hx Congestive Heart Failure: No Hx Diabetes: No Hx Deep Vein Thrombosis: No Hx Renal Disease: No Hx Sickle Cell Disease: No Hx Seizures: No Hx Asthma: No Hx COPD: No Hx HIV: No Additional medical history: OBESITY, anemic, Sinus Bradycardia - Surgical History Additional Surgical History: breast reduction, TONSILLECTOMY - Social History Smoking Status: Never Smoker Substance Use Type: Alcohol - Medications Home Medications: Home Medications Medication Instructions Recorded Confirmed Last Taken Type Nitrofurantoin [place]/M-Cryst 100 mg PO Q12HR #14 capsule 10/21/15 Unknown Rx [Macrobid CAP] Ketorolac [Toradol] 10 mg PO Q6H PRN #20 tablet 07/23/16 Unknown Rx Nitrofurantoin [place]/M-Cryst 100 mg PO Q12HR #14 capsule 07/23/16 Unknown Rx [Macrobid CAP] Ondansetron [Zofran Odt] 4 mg PO QID PRN #20 tab.rapdis 07/23/16 Unknown Rx Penicillin Vk [Veetids TAB] 250 mg PO Q8H #60 tablet 12/05/16 Unknown Rx Amoxicillin/K Clav Tab [Augmentin 1 tab PO Q12HR #14 tab 12/19/16 Unknown Rx 875 mg] Cetirizine HCl [ZyrTEC] 10 mg PO QDAY #14 capsule 12/19/16 Unknown Rx Fluticasone [Flonase] 1 spray NS QDAY #1 bottle 12/19/16 Unknown Rx Ibuprofen [Motrin 800 MG tab] 800 mg PO Q8HR PRN #15 tablet 12/19/16 Unknown Rx predniSONE [Deltasone] 20 mg PO QDAY #3 tab 12/19/16 Unknown Rx Naproxen 500 mg PO BID PRN #30 tablet 07/08/17 Unknown Rx Famotidine [Pepcid] 20 mg PO BID 14 Days #28 tablet 09/14/17 Unknown Rx Amlodipine Besylate [Norvasc] 5 mg PO DAILY #30 tablet 04/22/18 Unknown Rx Ketorolac [Toradol] 10 mg PO Q6H PRN #12 tablet 04/15/19 Unknown Rx ED Physical Exam - General Limitations: No Limitations General appearance: alert, in no apparent distress - Head Head exam: Present: atraumatic, normocephalic - Eye Eye exam: Present: normal appearance, PERRL, EOMI - ENT ENT exam: Present: mucous membranes moist - Neck Neck exam: Present: normal inspection - Respiratory Respiratory exam: Present: normal lung sounds bilaterally. Absent: respiratory distress, wheezes, rales, rhonchi - Cardiovascular Cardiovascular Exam: Present: regular rate, normal rhythm, normal heart sounds. Absent: systolic murmur, diastolic murmur, rubs, gallop - GI/Abdominal GI/Abdominal exam: Present: soft, normal bowel sounds. Absent: distended, tenderness, guarding, rebound - Extremities Exam Extremities exam: Present: normal inspection - Back Exam Back exam: Present: normal inspection - Neurological Exam Neurological exam: Present: alert, oriented X3 - Psychiatric Psychiatric exam: Present: normal affect, normal mood - Skin Skin exam: Present: warm, dry, intact, normal color. Absent: rash ED Course Vital Signs 04/14/19 04/14/19 04/14/19 22:15 22:18 23:53 Temperature 98.1 F Pulse Rate 51 L Respiratory 16 16 Rate Blood Pressure 166/110 Blood Pressure 188/127 [Left] O2 Sat by Pulse 97 97 Oximetry 04/14/19 04/15/19 04/15/19 23:55 00:04 00:56 Temperature Pulse Rate 62 62 56 L Respiratory 16 16 Rate Blood Pressure 153/99 Blood Pressure 153/99 149/74 [Left] O2 Sat by Pulse 96 Oximetry ED Medical Decision Making - Lab Data Result diagrams: 04/14/19 22:45 04/14/19 22:45 - Radiology Data [facility] [address] [place] [address] Cat Scan Report Signed Patient: ZORAN ESPINOZA MR#: [id number] : 1990 Acct:[id number] Age/Sex: 29 / F ADM Date: 04/14/19 Loc: ED Attending Dr: Ordering Physician: AMBAR MCCULLOUGH MD Date of Service: 04/15/19 Procedure(s): CT head/brain wo con Accession Number(s): [id number] cc: AMBAR MCCULLOUGH MD CT HEAD WITHOUT CONTRAST INDICATION / CLINICAL INFORMATION: new onset headache, hypertensive. TECHNIQUE: All CT scans at this location are performed using CT dose reduction for ALARA by means of automated exposure control. COMPARISON: Head CT 04/21/2018 FINDINGS: HEMORRHAGE: None. EXTRA-AXIAL SPACES: Normal in size and morphology for the patient's age. VENTRICULAR SYSTEM: Normal in size and morphology for the patient's age. CEREBRAL PARENCHYMA: No significant abnormality. No acute territorial infarct. MIDLINE SHIFT OR HERNIATION: None. CEREBELLUM / BRAINSTEM: No significant abnormality. ORBITS: Normal as visualized. SOFT TISSUES of HEAD: No significant abnormality. CALVARIUM: No significant abnormality. PARANASAL SINUSES / MASTOID AIR CELLS: Normal as visualized. ADDITIONAL FINDINGS: None. IMPRESSION: 1. No acute intracranial abnormality. Signer Name: Norman Odom MD Signed: 04/15/2019 1:23 AM Workstation Name: [id number] Transcribed By: Dictated By: Norman Odom MD Electronically Authenticated By: Norman Odom MD Signed Date/Time: 04/15/19 0123 - Medical Decision Making Patient is a 21-year-old female presenting with posterior headache. CT was negative for bleed. Patient blood pressure was 188/127 on arrival did decrease with Catapres. Patient states that she does have her blood pressure medicines and will be returning to the location where they are. She does not want any change of her medication regimen. Patient discharged home. He'll be referred to neurology for second opinion of her headaches Critical care attestation.: If time is entered above; I have spent that time in minutes in the direct care of this critically ill patient, excluding procedure time. ED Disposition Clinical Impression: Hypertensive urgency Acute head injury Qualifiers: Encounter type: initial encounter Qualified Code(s): S09.90XA - Unspecified injury of head, initial encounter Disposition: DC-01 TO HOME OR SELFCARE Is pt being admited?: No Does the pt Need Aspirin: No Condition: Stable Instructions: Hypertension (ED) Referrals: EDER BARNES MD [Staff Physician] - 3-5 Days PRIMARY CARE, [Primary Care Provider] - 3-5 Days Time of Disposition: 01:57
== END 2019-04-15 02:25 | disposition home or self-care (01) ==
LOC: ED 21:55
DX: S09.90XA Unspecified injury of head, initial encounter (principal); I16.0 Hypertensive urgency; I10 Essential (primary) hypertension; E66.9 Obesity, unspecified; Z68.41 Body mass index [BMI] 40.0-44.9, adult; Z88.8 Allergy status to other drugs, medicaments and biological substances; Z79.899 Other long term (current) drug therapy; Z79.1 Long term (current) use of non-steroidal anti-inflammatories (NSAID); Z90.89 Acquired absence of other organs; X58.XXXA Exposure to other specified factors, initial encounter; Y93.89 Activity, other specified; Y92.89 Other specified places as the place of occurrence of the external cause; Y99.8 Other external cause status
CPT/HCPCS: 36415; 70450; 80053; 81001; 81025; 85027; 93005; 93010; 96372; 99284; J1885

== ENCOUNTER 2019-06-17 07:44 | Emergency (ER) | payer OTHER ==
--- NOTE | 2019-06-17 09:25 | Emergency Department Report ---
ED Chest Pain HPI - General Chief Complaint: Chest Pain Stated Complaint: CHEST PAIN/NOSE INJURY Time Seen by Provider: 06/17/19 08:54 Source: patient Mode of arrival: Ambulatory Limitations: No Limitations - History of Present Illness Initial Comments: 29 yo comes to er with co substernal chest pain. She states it is "pressure." Nothing makes it better or worse. It comes and goes. rx norvasc [facility] She follows with [facility] for a "block" htn obese Ps breast reduction MD Complaint: chest pain Treatments Prior to Arrival: none Aspirin use within the Past 7 Days: (0) No - Related Data On Oral Contraceptives: No Previous Rx's Medication Instructions Recorded Last Taken Type Amlodipine Besylate [Norvasc] 5 mg PO DAILY #30 tablet 04/22/18 Unknown Rx Allergies Allergy/AdvReac Type Severity Reaction Status Date / Time hydrocodone bitartrate Allergy Rash Verified 10/21/15 13:37 [From Vicodin] Heart Score - HEART Score History: Slightly suspicious EKG: Normal Age: < 45 Risk factors: 1-2 risk factors Troponin: < normal limit HEART Score: 1 ED Review of Systems ROS: Stated complaint: CHEST PAIN/NOSE INJURY Other details as noted in HPI Comment: All other systems reviewed and negative ED Past Medical Hx - Past Medical History Previous Medical History?: Yes Hx Hypertension: Yes Hx CVA: No Hx Heart Attack/AMI: No Hx Congestive Heart Failure: No Hx Diabetes: No Hx Deep Vein Thrombosis: No Hx Pulmonary Embolism: No Hx GERD: No Hx Liver Disease: No Hx Renal Disease: No Hx of Cancer: No Hx Sickle Cell Disease: No Hx Arthritis: No Hx Headaches / Migraines: No Hx Seizures: No Hx Asthma: No Hx COPD: No Hx Tuberculosis: No Hx Dementia: No Hx HIV: No Additional medical history: OBESITY, anemic, Sinus Bradycardia - Surgical History Past Surgical History?: Yes Additional Surgical History: breast reduction, TONSILLECTOMY - Family History Family history: no significant - Social History Smoking Status: Never Smoker Substance Use Type: None - Medications Home Medications: Home Medications Medication Instructions Recorded Confirmed Last Taken Type Amlodipine Besylate [Norvasc] 5 mg PO DAILY #30 tablet 04/22/18 Unknown Rx ED Physical Exam - General Limitations: No Limitations General appearance: alert, in no apparent distress - Head Head exam: Present: atraumatic, normocephalic - Eye Eye exam: Present: normal appearance - ENT ENT exam: Present: mucous membranes moist - Neck Neck exam: Present: normal inspection - Respiratory Respiratory exam: Present: normal lung sounds bilaterally. Absent: respiratory distress - Cardiovascular Cardiovascular Exam: Present: regular rate, normal rhythm. Absent: systolic murmur, diastolic murmur, rubs, gallop - GI/Abdominal GI/Abdominal exam: Present: soft, normal bowel sounds - Extremities Exam Extremities exam: Present: normal inspection - Back Exam Back exam: Present: normal inspection - Neurological Exam Neurological exam: Present: alert, oriented X3 - Psychiatric Psychiatric exam: Present: normal affect, normal mood - Skin Skin exam: Present: warm, dry, intact, normal color. Absent: rash JOSELYN score - Joselyn Score Age > 65: (0) No Aspirin use within the Past 7 Days: (0) No 3 or more CAD Risk Factors: (0) No 2 or more Angina events in past 24 hrs: (0) No Known CAD with more than 50% Stenosis: (0) No Elevated Cardiac Markers: (0) No ST Deviation Greater than 0.5mm: (0) No JOSELYN Score: 0 ED Medical Decision Making - Lab Data Result diagrams: 06/17/19 10:02 06/17/19 10:02 - EKG Data EKG shows normal: sinus rhythm Rate: normal - EKG Data When compared to previous EKG there are: no significant change Interpretation: no acute changes - Radiology Data Radiology results: report reviewed, image reviewed - Medical Decision Making Labs 06/17/19 06/17/19 06/17/19 10:02 10:02 10:02 WBC 3.9 L RBC 4.51 Hgb 13.4 Hct 40.0 MCV 89 MCH 30 MCHC 34 RDW 13.4 Plt Count 315 Sodium 140 Potassium 4.4 Chloride 103.2 Carbon Dioxide 26 Anion Gap 15 BUN 8 Creatinine 0.6 L Estimated GFR > 60 BUN/Creatinine Ratio 13 Glucose 99 Calcium 9.2 Troponin T < 0.010 TSH 0.693 Urine Color Urine Turbidity Urine pH Ur Specific [place] Urine Protein Urine Glucose (UA) Urine Ketones Urine Blood Urine Nitrite Ur Reducing Substances Urine Bilirubin Urine Ictotest Urine Urobilinogen Ur Leukocyte Esterase Urine WBC (Auto) Urine RBC (Auto) U Epithel Cells (Auto) Urine Bacteria (Auto) Urine HCG, Qual 11/04/19 11:31 WBC RBC Hgb Hct MCV MCH MCHC RDW Plt Count Sodium Potassium Chloride Carbon Dioxide Anion Gap BUN Creatinine Estimated GFR BUN/Creatinine Ratio Glucose Calcium Troponin T TSH Urine Color Yellow Urine Turbidity Clear Urine pH 7.0 Ur Specific [place] 1.015 Urine Protein <15 mg/dl Urine Glucose (UA) Neg Urine Ketones Neg Urine Blood Neg Urine Nitrite Neg Ur Reducing Substances Not Reportable Urine Bilirubin Neg Urine Ictotest Not Reportable Urine Urobilinogen < 2.0 Ur Leukocyte Esterase Tr Urine WBC (Auto) 7.0 H Urine RBC (Auto) 4.0 U Epithel Cells (Auto) 10.0 Urine Bacteria (Auto) 1+ Urine HCG, Qual Negative 12 lead noted labs noted trop neg VS are normal- taken by RN and myself RN is to record in EMR- currently not in the EMR no fever no tachycardia no htn or hypotension sat 100 on room air ambulatory taking po will dc home with follow up with [facility]. Pt verbalizes understanding. Critical care attestation.: If time is entered above; I have spent that time in minutes in the direct care of this critically ill patient, excluding procedure time. ED Disposition Clinical Impression: Chest wall pain Disposition: DC-01 TO HOME OR SELFCARE Is pt being admited?: No Does the pt Need Aspirin: No Condition: Stable Instructions: Chest Pain (ED) Referrals: PRIMARY CAREMD [Primary Care Provider] - 3-5 Days KELLY KENYON MD [Staff Physician] - 3-5 Days Forms: Work/School Release Form(ED) Time of Disposition: 11:37
[2019-06-17 10:28] LABS: Hemoglobin 13.4 gm/dl (10.1-14.3); Mean Corpuscular HGB Conc 34 % (30-34); Mean Corpuscular Volume 89 fl (79-97); Platelet Count 315 K/mm3 (140-440); Red Blood Count 4.51 M/mm3 (3.65-5.03); Red Cell Distribution Width 13.4 % (13.2-15.2)
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
[2019-06-17 10:47] LABS: BUN/Creatinine Ratio 13; Blood Urea Nitrogen 8 mg/dL (7-17); Calcium 9.2 mg/dL (8.4-10.2); Hemolysis Index 4
[2019-06-17 12:29] LABS: HCG Qualitative,Urine Negative (Negative)
[2019-06-17 12:48] LABS: Bilirubin,Urine NEG (Negative); Blood,Urine NEG (Negative); Color,Urine Yellow (Yellow); Protein,Urine <15 mg/dL mg/dL (Negative); Urobilinogen,Urine < 2.0 mg/dL (<2.0)
[2019-06-17 13:13] LABS: Bacteria,Urine 1+ /HPF (Negative)
== END 2019-06-17 11:56 | disposition home or self-care (01) ==
LOC: ED 07:44
DX: R07.89 Other chest pain (principal); I10 Essential (primary) hypertension; E66.9 Obesity, unspecified; Z68.41 Body mass index [BMI] 40.0-44.9, adult; Z90.89 Acquired absence of other organs; Z88.8 Allergy status to other drugs, medicaments and biological substances; Z79.899 Other long term (current) drug therapy
CPT/HCPCS: 36415; 71046; 80048; 81001; 81025; 84443; 84484; 85027; 93005; 93010; 99284

== ENCOUNTER 2019-10-14 18:21 | Emergency (ER) | payer OTHER ==
[2019-10-14] MEDS ORDERED: KETOROLAC 30 MG/1 ML INJ IV ONE (18:53)
[2019-10-14] MEDS ORDERED: ONDANSETRON 4 MG/2 ML INJ IV ONE (20:00)
[2019-10-14] MEDS ORDERED: MORPHINE 4 MG/1 ML INJ IV ONE (20:00)
[2019-10-14] MEDS ORDERED: diphenhydrAMINE 50 MG/ML VIAL IV ONE (20:00)
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
[2019-10-14 23:53] VITALS: BP 141/90
== END 2019-10-15 00:32 | disposition home or self-care (01) ==
LOC: ED 18:21
DX: S16.1XXA Strain of muscle, fascia and tendon at neck level, initial encounter (principal); S39.012A Strain of muscle, fascia and tendon of lower back, initial encounter; S70.02XA Contusion of left hip, initial encounter; M54.6 Pain in thoracic spine; I10 Essential (primary) hypertension; E66.9 Obesity, unspecified; D64.9 Anemia, unspecified; Z88.5 Allergy status to narcotic agent; Z79.899 Other long term (current) drug therapy; Z90.49 Acquired absence of other specified parts of digestive tract; Z98.890 Other specified postprocedural states; V49.49XA Driver injured in collision with other motor vehicles in traffic accident, initial encounter; Y92.410 Unspecified street and highway as the place of occurrence of the external cause; Y93.89 Activity, other specified; Y99.8 Other external cause status
CPT/HCPCS: 71046; 72072; 72100; 72125; 73502; 96374; 96375; 99284; J1200; J1885; J2270; J2405

== ENCOUNTER 2022-04-11 23:08 | Emergency (ER) | payer OTHER ==
[2022-04-12] MEDS ORDERED: IBUPROFEN ORAL LIQD 100 MG/5 ML ORAL.LIQD PO ONE (04:43)
[2022-04-12 04:51] VITALS: BP 162/113
[2022-04-12] MEDS ORDERED: PENICILLIN G BENZATHINE 1.2 MILLION UNIT/2 ML INJ IM STA (06:49)
[2022-04-12] MEDS ORDERED: DEXAMETHASONE 4 MG TAB PO ONE (06:49)
--- NOTE | 2022-04-12 07:04 | Emergency Department Report ---
ED General Adult HPI - General Chief complaint: Sore Throat Stated complaint: SORE THROAT/PARMJIT Time Seen by Provider: 04/12/22 06:48 Source: patient Mode of arrival: Ambulatory Limitations: No Limitations - History of Present Illness Initial comments: 32-year-old [place] female currently being treated for urinary tract infection with Macrobid presents emerged department complaining of a few day history as well as worsening odynophagia and this patient is due to what she believes is a throat infection of unknown etiology. She reports no fever, chills, sweats. Hemoptysis no hematemesis hematochezia. No nausea, no vomiting. Continue medications as prescribed no known immunocompromising history -: Gradual Location: face Radiation: non-radiation Severity scale (0 -10): 8 Quality: dull Consistency: constant Improves with: none Worsens with: eating Associated Symptoms: denies: confusion, cough, syncope - Related Data Previous Rx's Medication Instructions Recorded Last Taken Type Amlodipine Besylate [Norvasc] 5 mg PO DAILY #30 tablet 04/22/18 Unknown Rx Ibuprofen [Motrin] 800 mg PO Q8HR PRN #20 tablet 10/14/19 Unknown Rx oxyCODONE /ACETAMINOPHEN [Percocet 1 tab PO Q6HR PRN #15 tablet 10/14/19 Unknown Rx 5/325] Nystatin [Nystatin SUSP] 5 ml PO QID #200 ml 04/12/22 Unknown Rx Allergies Allergy/AdvReac Type Severity Reaction Status Date / Time hydrocodone bitartrate Allergy Rash Verified 10/21/15 13:37 [From Vicodin] ED Review of Systems ROS: Stated complaint: SORE THROAT/PARMJIT Other details as noted in HPI Comment: All other systems reviewed and negative ED Past Medical Hx - Past Medical History Hx Hypertension: Yes Hx CVA: No Hx Heart Attack/AMI: No Hx Congestive Heart Failure: No Hx Diabetes: No Hx Deep Vein Thrombosis: No Hx Pulmonary Embolism: No Hx GERD: No Hx Liver Disease: No Hx Renal Disease: No Hx Sickle Cell Disease: No Hx Arthritis: No Hx Headaches / Migraines: No Hx Seizures: No Hx Asthma: No Hx COPD: No Hx Tuberculosis: No Hx Dementia: No Hx HIV: No Additional medical history: OBESITY, anemic, Sinus Bradycardia - Surgical History Additional Surgical History: breast reduction, TONSILLECTOMY - Social History Smoking Status: Never Smoker Substance Use Type: None - Medications Home Medications: Home Medications Medication Instructions Recorded Confirmed Last Taken Type Amlodipine Besylate [Norvasc] 5 mg PO DAILY #30 tablet 04/22/18 Unknown Rx Ibuprofen [Motrin] 800 mg PO Q8HR PRN #20 tablet 10/14/19 Unknown Rx oxyCODONE /ACETAMINOPHEN [Percocet 1 tab PO Q6HR PRN #15 tablet 10/14/19 Unknown Rx 5/325] Nystatin [Nystatin SUSP] 5 ml PO QID #200 ml 04/12/22 Unknown Rx ED Physical Exam - General Limitations: No Limitations General appearance: alert, in no apparent distress - Head Head exam: Present: atraumatic, normocephalic - Eye Eye exam: Present: normal appearance, PERRL, EOMI - ENT ENT exam: Present: mucous membranes moist, other (Pharynx is red swollen with exudate does have a thrush appearance) - Neck Neck exam: Present: tenderness, full ROM, lymphadenopathy - Respiratory Respiratory exam: Present: normal lung sounds bilaterally. Absent: respiratory distress - Cardiovascular Cardiovascular Exam: Present: regular rate, normal rhythm. Absent: systolic murmur, diastolic murmur, rubs, gallop - GI/Abdominal GI/Abdominal exam: Present: soft, normal bowel sounds - Extremities Exam Extremities exam: Present: normal inspection - Back Exam Back exam: Present: normal inspection - Neurological Exam Neurological exam: Present: alert, oriented X3 - Psychiatric Psychiatric exam: Present: normal affect, normal mood - Skin Skin exam: Present: warm, dry, intact, normal color. Absent: rash ED Course Vital Signs 04/11/22 04/12/22 23:19 04:44 Temperature 98.3 F 98.2 F Pulse Rate 91 H 86 Respiratory 18 18 Rate Blood Pressure 175/98 162/113 O2 Sat by Pulse 98 98 Oximetry ED Medical Decision Making - Medical Decision Making 32-year-old female with no history of any compromised nontoxic appearance p atient is euvolemic with no trismus no airway compromise unable to tolerate p.o. given history and examination low suspicion for this presentation being caused by peritonsillar abscess, Viet, bacterial tracheitis, acute HIV, epiglottitis, retropharyngeal abscess. Critical care attestation.: If time is entered above; I have spent that time in minutes in the direct care of this critically ill patient, excluding procedure time. ED Disposition Clinical Impression: Exudative pharyngitis Disposition: HOME / SELF CARE / HOMELESS Is pt being admited?: No Does the pt Need Aspirin: No Condition: Stable Instructions: Strep Throat, Adult, Upper Respiratory Infection, Adult, [id number], Pharyngitis, [id number], Sore Throat, [id number] Prescriptions: Nystatin [Nystatin SUSP] 5 ml PO QID #200 ml Referrals: [facility] [Provider Group] - 3-5 Days USHA MELCHOR MD [Staff Physician] - 3-5 Days
== END 2022-04-12 07:47 | disposition home or self-care (01) ==
LOC: ED 23:08
DX: J02.9 Acute pharyngitis, unspecified (principal); I10 Essential (primary) hypertension; Z91.09 Other allergy status, other than to drugs and biological substances; Z79.899 Other long term (current) drug therapy
CPT/HCPCS: 96372; 99282; J0561; J8540